=== PATIENT | female | born 1970 | race Caucasian/White ===

== ENCOUNTER 2019-08-31 16:26 | Emergency (ER) | payer BC ==
[2019-08-31 16:51] VITALS: BP 187/101
[2019-08-31] MEDS ORDERED: HYDROCHLOROTHIAZIDE 12.5 MG TABLET PO ONE (17:48)
--- NOTE | 2019-08-31 18:23 | ER Document Report ---
HPI - HPI Time Seen by Provider: 08/31/19 17:23 Pain Level: 4 Notes: 49-year-old female patient presenting with concern for elevated blood pressure over the last few weeks. Patient reports she has had her blood pressure taken on multiple occasions and has been elevated each time. Patient reports today her blood pressure was approximately 220/120 systolic. She states that she has tried getting into see her primary care but they do not have an appointment available until the end of the month. Patient denies any chest pain, shortness of breath, headache or any other symptoms. - REPRODUCTIVE Reproductive: DENIES: : Past Medical History - General Information source: Patient - Social History Smoking Status: Current Every Day Smoker Chew tobacco use (# tins/day): No Frequency of alcohol use: Occasional Drug Abuse: None Family History: Reviewed & Not Pertinent Patient has suicidal ideation: No Patient has homicidal ideation: No - Medical History Medical History: Negative Surgical Hx: Negative - Immunizations Immunizations up to date: Yes Vertical Provider Document - CONSTITUTIONAL Notes: PHYSICAL EXAMINATION: GENERAL: Well-appearing, well-nourished and in no acute distress. HEAD: Atraumatic, normocephalic. EYES: Pupils equal round extraocular movements intact, conjunctiva are normal. ENT: Nares patent NECK: Normal range of motion LUNGS: No respiratory distress Musculoskeletal: Normal range of motion NEUROLOGICAL: Normal speech, normal gait. PSYCH: Normal mood, normal affect. SKIN: Warm, Dry, normal turgor, no rashes or lesions noted. - INFECTION CONTROL TRAVEL OUTSIDE OF THE [place] IN LAST 30 DAYS: No Course - Re-evaluation Re-evalutation: Patient will be started on hydrochlorothiazide 12.5 mg daily. First dose was given here in the emergency department. Encouraged her to please follow-up with either primary care or cardiology. Contact info was given to her. ED return precautions were discussed. The patient's emergency department workup and current diagnosis were explained to the patient and or family. Follow-up instructions were provided. Medications if prescribed were discussed. Instructions for when to return to the emergency department including specific worrisome symptoms were discussed with the patient and/or family. - Vital Signs Vital signs: Temp Pulse Resp BP Pulse Ox 98.1 F 107 H 16 187/101 H 98 08/31/19 16:49 08/31/19 16:49 08/31/19 16:49 08/31/19 16:49 08/31/19 16:49 Discharge - Discharge Clinical Impression: Hypertension Qualifiers: Hypertension type: unspecified Qualified Code(s): I10 - Essential (primary) hypertension Condition: Stable Disposition: HOME, SELF-CARE Additional Instructions: You were seen in the emergency department today for hypertension. You were started on a medication called hydrochlorothiazide. Please take this medication once daily. Please establish an appointment with either your primary care provider or cardiology, cardiology is phone number is below. Return to the emergency department for any new or worsening symptoms. Prescriptions: Hydrochlorothiazide 12.5 mg PO DAILY #30 tablet Referrals: MAHSA PERALTA MD [ACTIVE STAFF] - Follow up as needed
== END 2019-08-31 18:40 | disposition home or self-care (01) ==
LOC: ER 16:26
DX: I10 Essential (primary) hypertension (principal); F17.200 Nicotine dependence, unspecified, uncomplicated
CPT/HCPCS: 99283